=== PATIENT | male | born 1980 | race Caucasian/White ===

== ENCOUNTER 2016-11-01 05:32 | Emergency (ER) | payer OTHER ==
--- NOTE | ~2016-11-01 | EKG ---
PATIENT: BRANDON LEE UNIT #: [id number] Ventricular Rate: 85 BPM Atrial Rate: 85 BPM P-R Interval: 130 ms QRS Duration: 86 ms Q-T Interval: 362 ms QTC Calculation(Bezet): 430 ms P Amanda: 14 degrees Calculated R Amanda: 71 degrees Calculated T Amanda: 63 degrees Diagnosis Line: Normal sinus rhythm Diagnosis Line: Normal ECG Diagnosis Line: When compared with ECG of 07-JAN-2016 18:44, Diagnosis Line: No significant change was found Diagnosis Line: Confirmed by RAINA MÁRQUEZ MD ([id number]) on 11/07/2016 Diagnosis Line: 9:36:55 AM INTERPRETING MD: WILLI MYRICK
--- NOTE | ~2016-11-01 | CR72 ---
[facility]. [facility] A Service of [facility] & [facility] RADIOLOGY TEXT RESULTS PATIENT: BRANDON LEE LOCATION: SED : 80 UNIT #: [id number] AGE: [address]: Frandy Funez MD SEX: M ORDER DR: [id number] [place] [address] [id number] E MR#: [id number] Acc #: [id number] NAME: BRANDON LEE : 1980 SEX: M STUDY DATE/TIME: 11/01/2016 5:19 UNIT: SED ROOM: STUDY DESCRIPTION: CR Chest Single View Portable Attending Physician: Frandy Funez M.D. Ordering Physician: Frandy Funez M.D. Primary Care Physician: Owen Dos Santos M.D. MEDICAL IMAGING REPORT This report is preliminary unless electronic signature is present. EXAM AP portable chest 11/01/2016 HISTORY 36-year-old male in the ED complaining of shortness of air beginning tonight prior to arrival. TECHNIQUE AP portable chest x-ray. FINDINGS Heart size and pulmonary vascularity are normal. The lungs are expanded and clear. No visible pulmonary infiltrate or pleural effusion. No change since 08/10/2016. IMPRESSION Negative chest. Dictated by... Owen Ruiz M.D. THIS IS AN ELECTRONICALLY VERIFIED REPORT Owen Ruiz M.D. at 11/02/2016 5:30 AM RICARDOW/christopher TD: 11/02/2016 04:06 JOB #: [id number] MEDICAL IMAGING REPORT
[2016-11-01 05:29] LABS: BASOPHIL% 0.6 % (0-2.5); EOSINOPHIL# 0.6 X10e3 (0-0.7); EOSINOPHIL% 6.9 % (0.0-7.0); HEMATOCRIT 48.7 % (38.0-50.0); HEMOGLOBIN 15.9 gm/dL (13.0-16.0); LYMPHOCYTE# 2.8 X10e3 (1.0-3.5); LYMPHOCYTE% 33.1 % (17.0-45.0); MEAN CELL VOLUME 89.8 FL (83-96); MEAN CORPUSCULAR HEMOGLOBIN 29.4 PG (28-34); MEAN CORPUSCULAR HGB CONC 32.7 g/dL (30-36); MEAN PLATELET VOLUME 7.2 FL (6.5-11.5); MONOCYTE# 0.8 X10e3 (0-1.0); MONOCYTE% 10.1 % (3.0-12.0); NEUTROPHIL# 4.1 X10e3 (1.5-7.1); NEUTROPHIL% 49.3 % (40-75); PLATELET COUNT 226 X10e3 (140-420); RED BLOOD COUNT 5.42 X10e (3.90-5.60); RED CELL DISTRIBUTION WIDTH 13.1 % (11.0-15.5); WHITE BLOOD COUNT 8.3 X10e3 (4.0-10.5)
[2016-11-01 05:32] LABS: DIFF IND NO
[~2016-11-01 05:32] MED LIST: ALBUTEROL MININEB; ALBUTEROL17 GM INH; ALBUTEROL20 ml INH; AUGMENTIN875 M1; AZITHROMYCIN250 MG PO; CEFZIL500 MG PO; LEVAQUIN750 M1 PO; MEDROL PO; MOTRIN400 M1 PO; NAPROSYN500 MG PO; NO MEDICATIONS; PHENERGAN W/CODIENE PO; PREDNISONE; PREDNISONE PO; PREDNISONE50 MG PO; PROMETH-CODEIN 65 ML; PROVENTIL0.83 MG/ML IH; ROBAXIN 750750 M1 PO; ROBITUSSIN A-C S5 ML PO; TESSALON PERLE100 M1 PO; VEETIDS 500500 M1 PO; ZITHROMAX PO
[2016-11-01 05:37] LABS: BLOOD UREA NITROGEN 18 mg/dL (9-23); BUN/CREATININE RATIO 25.71; CALCIUM SERUM 8.6 mg/dL (8.4-10.2); CARBON DIOXIDE 25 mmol/L (22-31); CHLORIDE 103 mmol/L (100-111); CREATININE SERUM 0.7 mg/dL (0.6-1.4); GLOM FILT RATE Estimated ABOVE60 mL/min (>60); GLUCOSE FASTING 112 mg/dL (70-110); POTASSIUM 3.6 mmol/L (3.5-5.1); SODIUM 136 mmol/L (135-145)
[2016-11-01 05:42] LABS: POC - TROPONIN <0.05 ng/mL (<=0.05)
[2016-11-01 06:10] LABS: INFLUENZA A NEG (NEG); INFLUENZA B NEG (NEG)
== END 2016-11-01 07:01 | disposition home or self-care (01) ==
LOC: SED 05:32
PROVIDERS: Emergency Medicine
DX: J44.1 Chronic obstructive pulmonary disease with (acute) exacerbation (principal)
CPT/HCPCS: 36415; 71010; 80048; 82553; 83874; 83880; 84484; 85025; 87040; 87804; 93005; 94640; 96365; 96375; 99284; J2930; J3475